=== PATIENT | female | born 2000 | race Two or more races ===

== ENCOUNTER 2025-01-03 15:15 | Emergency (ER) | payer OTHER ==
[~2025-01-03] VITALS: Ht 160 cm; Wt 79.4 kg
[2025-01-03 17:26] LABS: BASO % 0.5 % (0.1-1.2); EOS # 0.16 (0.04-0.54); EOS % 1.5 % (0.7-7.0); LYMPH # 3.93 (1.18-3.74); LYMPH % 36.0 % (19.3-53.1); MEAN PLATELET VOLUME 12.00 fl (9.4-12.4); MONO # 0.88 (0.24-0.82); MONO % 8.1 % (4.7-12.5); NEUT # 5.85 (1.56-6.13); NEUT % 53.6 % (34.0-71.1); RED CELL DISTRIBUTION WIDTH 12.9 % (11.6-14.4)
[2025-01-03 18:23] LABS: URINE APPEARANCE Cloudy; URINE BILIRRUBIN Negative (NEGATIVE); URINE BLOOD Large; URINE COLOR Yellow; URINE GLUCOSE Negative (NEGATIVE); URINE KETONE Trace (NEGATIVE); URINE LEUKOCYTE Small; URINE NITRATE Negative; URINE PROTEIN 30 (NEGATIVE); URINE UROBILINOGEN 1.0 E.U./dl
[2025-01-03 18:27] LABS: URINE BACTERIA 5480.3 uL (0.0-1933); URINE CAST 0.00 uL (0.0-1.40); URINE EPITHELIAL CELLS > 201.7 uL (0.0-38.8); URINE RBC 139.7 uL (0.0-20.8); URINE WBC 58.1 uL (0.0-23.2)
[2025-01-03 18:53] LABS: URINE CRYSTALS MODERATE /HPF
[2025-01-03 18:55] LABS: TYPE CELLS SQUAMOUS; URINE MUCUS SCANT
[2025-01-03] MEDS ORDERED: AMOX1TAB5 PO (18:58)
[2025-01-03] MEDS ORDERED: PEPCID AC20 MG PO (18:58)
== END 2025-01-03 19:03 | disposition home or self-care (01) ==
LOC: ER 17:43
PROVIDERS: General Practice
DX: O20.8 Other hemorrhage in early pregnancy (principal); Z3A.01 Less than 8 weeks gestation of pregnancy